=== PATIENT | female | born 1965 | race Caucasian/White ===

== ENCOUNTER 2017-11-14 17:24 | Inpatient (IN) | payer BC, OTHER ==
[2017-11-14] MEDS: ALPRAZOLAM 0.25 MG TAB PO (21:44)
[2017-11-14 22:14] LABS: ADD MAN DIFF? NO
[2017-11-14] MEDS: SOD CHLORIDE 0.9% 1,000 ML IV (22:16)
[2017-11-14] MEDS: CLINDAMYCIN 900 MG/D5W (PMX) 50 ML IVPB (22:16)
[2017-11-14 22:19] LABS: BASOPHILS % 0.3 % (0.0-2.0); EOSINOPHILS # 0.3 10^3/ul (0.0-0.5); HEMATOCRIT 39.2 % (37.0-47.0); HEMOGLOBIN 12.4 g/dl (12.0-16.0); IMMATURE GRANS #M 0.04 10^3/ul; IMMATURE GRANS % (M) 0.5 %; LYMPHOCYTES # 2.4 10^3/ul (0.8-2.9); LYMPHOCYTES % 27.5 % (15.0-51.0); MEAN CORPUSCULAR HEMOGLOBIN 27.1 pg (29.0-33.0); MEAN CORPUSCULAR HGB CONC 31.6 g/dl (32.0-37.0); MEAN CORPUSCULAR VOLUME 85.6 fl (82.0-101.0); MEAN PLATELET VOLUME 10.2 fl (7.4-10.4); MONOCYTE # 0.7 10^3/ul (0.3-0.9); MONOCYTES % 7.8 % (0.0-11.0); NEUTROPHIL # 5.4 10^3/ul (1.6-7.5); NEUTROPHILS % 60.9 % (39.0-77.0); PLATELET COUNT 293 10^3/UL (140-415); RED BLOOD COUNT 4.58 10^6/ul (4.20-5.40); RED CELL DISTRIBUTION WIDTH 13.9 % (11.5-14.5)
[2017-11-14 22:19] LABS: WHITE BLOOD COUNT 8.8 10^3/ul (4.8-10.8)
[2017-11-14 22:34] LABS: ANION GAP 15 (8-16); BLOOD UREA NITROGEN 19 mg/dl (7-20); CALCIUM 9.5 mg/dl (8.4-10.2); CARBON DIOXIDE 24 mmol/L (21-31); CHLORIDE 100 mmol/L (97-110); CREATININE 0.87 mg/dl (0.44-1.00); GLUCOSE 242 mg/dl (70-220); POTASSIUM 4.4 mmol/L (3.5-5.1); SODIUM 135 mmol/L (135-144)
[2017-11-15] MEDS ORDERED: ONDANSETRON 4 MG INJ IV ×2 (01:30→19:30)
[2017-11-15] MEDS ORDERED: GLUCOSE GEL 15 GRAM TUBE BUCCAL (02:00)
[2017-11-15] MEDS ORDERED: DEXTROSE 50% 50 ML SYRINGE IV ×2 (02:00)
[2017-11-15] MEDS ORDERED: GLUCAGON 1 MG INJ IM (02:00)
[2017-11-15] MEDS ORDERED: GLUCOSE GEL 15 GRAM TUBE PO ×2 (02:00)
[2017-11-15 07:55] LABS: ADD MAN DIFF? NO
[2017-11-15 08:00] LABS: WHITE BLOOD COUNT 7.1 10^3/ul (4.8-10.8)
[2017-11-15 08:00] LABS: BASOPHILS % 0.6 % (0.0-2.0); EOSINOPHILS # 0.3 10^3/ul (0.0-0.5); HEMATOCRIT 36.8 % (37.0-47.0); HEMOGLOBIN 11.5 g/dl (12.0-16.0); LYMPHOCYTES % 28.9 % (15.0-51.0); MEAN CORPUSCULAR HEMOGLOBIN 26.6 pg (29.0-33.0); MEAN CORPUSCULAR HGB CONC 31.3 g/dl (32.0-37.0); MEAN CORPUSCULAR VOLUME 85.2 fl (82.0-101.0); MEAN PLATELET VOLUME 10.7 fl (7.4-10.4); MONOCYTE # 0.5 10^3/ul (0.3-0.9); MONOCYTES % 6.9 % (0.0-11.0); NEUTROPHIL # 4.2 10^3/ul (1.6-7.5); NEUTROPHILS % 59.3 % (39.0-77.0); PLATELET COUNT 274 10^3/UL (140-415); RED BLOOD COUNT 4.32 10^6/ul (4.20-5.40); RED CELL DISTRIBUTION WIDTH 13.9 % (11.5-14.5)
[2017-11-15 08:16] LABS: HEMOGLOBIN A1C 9.5 % (0-5.9)
[2017-11-15 08:33] LABS: ANION GAP 16 (8-16); BLOOD UREA NITROGEN 19 mg/dl (7-20); CALCIUM 9.1 mg/dl (8.4-10.2); CARBON DIOXIDE 25 mmol/L (21-31); CHLORIDE 103 mmol/L (97-110); CREATININE 0.92 mg/dl (0.44-1.00); GLUCOSE 293 mg/dl (70-220); POTASSIUM 4.5 mmol/L (3.5-5.1); SODIUM 139 mmol/L (135-144)
[2017-11-15] MEDS: INSULIN ASPART [NOVOLOG] 3 ML PEN SC ×6 (08:47→22:07)
[2017-11-15] MEDS ORDERED: CEFTRIAXONE 1 GM/50 ML (PMX) 50 ML IVPB (11:00)
[2017-11-15] MEDS ORDERED: VANCOMYCIN IV PER PHARMACY XX (11:30)
[2017-11-15] MEDS: CEFEPIME 2GM/50 ML (PMX) 50 ML IVPB ×2 (13:26→23:37)
[2017-11-15] MEDS: VANCOMYCIN 2 GM in SOD CHLORIDE 0.9% 500 ML IVPB (14:12)
[2017-11-15] MEDS: hydrALAzine 20 MG INJ IV (18:03)
[2017-11-15] MEDS ORDERED: LABETALOL HCL 20MG INJ (19:08)
[2017-11-15] MEDS ORDERED: hydrALAzine 20 MG INJ IV (19:30)
[2017-11-15] MEDS ORDERED: DIPHENHYDRAMINE 50 MG INJ IV (19:30)
[2017-11-15] MEDS ORDERED: LABETALOL HCL 20MG INJ IV (19:30)
[2017-11-15] MEDS ORDERED: HYDROmorphONE 1 MG/5 ML IV SYRINGE IV ×3 (19:30)
[2017-11-15] MEDS ORDERED: FENTAnyl 50 MCG/ML VIAL (19:32)
[2017-11-15] MEDS ORDERED: MIDAZOLAM 1 MG/ML 2 ML INJ (19:32)
[2017-11-15] MEDS: VANCOMYCIN 1 GM INJ (19:52)
[2017-11-15] MEDS: BUPIVACAINE 0.5% (SDV) 30 ML INJ (19:52)
[2017-11-15] MEDS: ACETAMINOPHEN 325 MG TAB PO (21:15)
[2017-11-15] MEDS: INSULIN GLARGINE [LANTus] (100 UNITS/ML) SYG SC (22:08)
[2017-11-15] MEDS: SERTRALINE 50 MG TAB PO (23:36)
[2017-11-16] MEDS: ACCU-CHEK XX (02:00)
[2017-11-16] MEDS: VANCOMYCIN 1.25 GM in SOD CHLORIDE 0.9% 250 ML IVPB ×2 (02:14→14:19)
[2017-11-16 06:36] LABS: C-REACTIVE PROTEIN 3.6 mg/dl (0.0-0.9)
[2017-11-16 07:46] LABS: ERYTHROCYTE SEDIMENTATION RATE 49 mm/Hr (0-30)
[2017-11-16] MEDS: INSULIN ASPART [NOVOLOG] 3 ML PEN SC ×7 (08:16→20:57)
[2017-11-16] MEDS: hydrALAzine 20 MG INJ IV ×2 (08:45→15:09)
[2017-11-16] MEDS: SERTRALINE 50 MG TAB PO ×3 (08:45→20:58)
[2017-11-16 11:02] LABS: ADD MAN DIFF? NO
[2017-11-16 11:03] LABS: BASOPHILS % 0.4 % (0.0-2.0); EOSINOPHILS # 0.2 10^3/ul (0.0-0.5); EOSINOPHILS % 3.3 % (0.0-7.0); HEMATOCRIT 37.2 % (37.0-47.0); HEMOGLOBIN 11.9 g/dl (12.0-16.0); LYMPHOCYTES # 1.8 10^3/ul (0.8-2.9); LYMPHOCYTES % 24.6 % (15.0-51.0); MEAN CORPUSCULAR HEMOGLOBIN 27.4 pg (29.0-33.0); MEAN CORPUSCULAR VOLUME 85.5 fl (82.0-101.0); MEAN PLATELET VOLUME 10.8 fl (7.4-10.4); MONOCYTE # 0.6 10^3/ul (0.3-0.9); MONOCYTES % 8.3 % (0.0-11.0); NEUTROPHIL # 4.6 10^3/ul (1.6-7.5); NEUTROPHILS % 63.1 % (39.0-77.0); PLATELET COUNT 278 10^3/UL (140-415); RED BLOOD COUNT 4.35 10^6/ul (4.20-5.40); RED CELL DISTRIBUTION WIDTH 13.8 % (11.5-14.5)
[2017-11-16 11:03] LABS: WHITE BLOOD COUNT 7.3 10^3/ul (4.8-10.8)
[2017-11-16 11:09] LABS: ALANINE AMINOTRANSFERASE 17 IU/L (13-69); ALBUMIN 3.8 g/dl (3.3-4.9); ALBUMIN/GLOBULIN RATIO 1.18; ALKALINE PHOSPHATASE 71 IU/L (42-121); ANION GAP 16 (8-16); ASPARTATE AMINO TRANSFERASE 19 IU/L (15-46); BLOOD UREA NITROGEN 18 mg/dl (7-20); CALCIUM 9.3 mg/dl (8.4-10.2); CARBON DIOXIDE 25 mmol/L (21-31); CHLORIDE 104 mmol/L (97-110); CREATININE 0.91 mg/dl (0.44-1.00); GLUCOSE 285 mg/dl (70-220); POTASSIUM 4.6 mmol/L (3.5-5.1); SODIUM 140 mmol/L (135-144)
[2017-11-16] MEDS: PIPER-TAZO 3.375 GM IV (PMX) 100 ML IVPB ×2 (11:13→17:48)
[2017-11-16] MEDS: LISINOPRIL 10 MG TAB PO (11:13)
[2017-11-16] MEDS: AMLODIPINE 5 MG TAB PO (11:13)
[2017-11-16] MEDS: ACETAMINOPHEN 325 MG TAB PO ×2 (11:23→20:31)
[2017-11-16 13:49] LABS: VANCOMYCIN,TROUGH 13.2 ug/ml (10.0-20.0)
[2017-11-16] MEDS: metFORMIN 500 MG TAB PO (17:48)
[2017-11-16] MEDS: LINAGLIPTIN 5 MG TABLET PO (18:25)
[2017-11-16] MEDS: INSULIN GLARGINE [LANTus] (100 UNITS/ML) SYG SC (20:57)
[2017-11-17] MEDS: PIPER-TAZO 3.375 GM IV (PMX) 100 ML IVPB ×5 (00:12→23:53)
[2017-11-17] MEDS: ACCU-CHEK XX (02:00)
[2017-11-17] MEDS: VANCOMYCIN 1.25 GM in SOD CHLORIDE 0.9% 250 ML IVPB ×2 (02:24→13:31)
[2017-11-17 07:01] LABS: ANION GAP 14 (8-16); BLOOD UREA NITROGEN 21 mg/dl (7-20); CARBON DIOXIDE 24 mmol/L (21-31); CHLORIDE 103 mmol/L (97-110); CREATININE 0.87 mg/dl (0.44-1.00); GLUCOSE 289 mg/dl (70-220); POTASSIUM 4.7 mmol/L (3.5-5.1); SODIUM 136 mmol/L (135-144)
[2017-11-17] MEDS: SERTRALINE 50 MG TAB PO ×2 (08:42→20:36)
[2017-11-17] MEDS: LINAGLIPTIN 5 MG TABLET PO (08:42)
[2017-11-17] MEDS: AMLODIPINE 5 MG TAB PO ×2 (08:43→22:00)
[2017-11-17] MEDS: LISINOPRIL 10 MG TAB PO (08:43)
[2017-11-17] MEDS: INSULIN ASPART [NOVOLOG] 3 ML PEN SC ×6 (09:18→20:37)
[2017-11-17] MEDS ORDERED: metFORMIN 500 MG TAB PO (09:30)
[2017-11-17] MEDS: EMPAGLIFLOZIN 10 MG TABLET PO (10:23)
[2017-11-17] MEDS: metFORMIN 500 MG TAB PO ×2 (10:23→17:20)
[2017-11-17] MEDS: MUPIROCIN 2% 22 GM OINT TOP ×2 (10:24→21:58)
[2017-11-17] MEDS: hydrALAzine 20 MG INJ IV (17:35)
[2017-11-17] MEDS: INSULIN GLARGINE [LANTus] (100 UNITS/ML) SYG SC (20:40)
[2017-11-17] MEDS: ACETAMINOPHEN 325 MG TAB PO (22:05)
[2017-11-18] MEDS: ACCU-CHEK XX (01:59)
[2017-11-18] MEDS: VANCOMYCIN 1.25 GM in SOD CHLORIDE 0.9% 250 ML IVPB (02:05)
[2017-11-18] MEDS: PIPER-TAZO 3.375 GM IV (PMX) 100 ML IVPB (06:23)
[2017-11-18 07:05] LABS: ADD MAN DIFF? NO
[2017-11-18 07:11] LABS: WHITE BLOOD COUNT 7.2 10^3/ul (4.8-10.8)
[2017-11-18 07:11] LABS: BASOPHIL # 0.1 10^3/ul (0.0-0.1); BASOPHILS % 0.7 % (0.0-2.0); EOSINOPHILS # 0.3 10^3/ul (0.0-0.5); EOSINOPHILS % 3.6 % (0.0-7.0); HEMATOCRIT 38.7 % (37.0-47.0); LYMPHOCYTES # 1.8 10^3/ul (0.8-2.9); LYMPHOCYTES % 25.5 % (15.0-51.0); MEAN CORPUSCULAR HEMOGLOBIN 26.4 pg (29.0-33.0); MEAN CORPUSCULAR VOLUME 85.1 fl (82.0-101.0); MEAN PLATELET VOLUME 10.3 fl (7.4-10.4); MONOCYTE # 0.6 10^3/ul (0.3-0.9); MONOCYTES % 7.6 % (0.0-11.0); NEUTROPHIL # 4.5 10^3/ul (1.6-7.5); PLATELET COUNT 287 10^3/UL (140-415); RED BLOOD COUNT 4.55 10^6/ul (4.20-5.40); RED CELL DISTRIBUTION WIDTH 14.1 % (11.5-14.5)
[2017-11-18 07:35] LABS: CHOL/HDL RATIO 3.9 RATIO; HDL CHOLESTEROL 68 mg/dl (37-92); LDL CHOLESTEROL,CALCULATED 152 mg/dl; TRIGLYCERIDES 232 mg/dl (0-149)
[2017-11-18 07:35] LABS: CHOLESTEROL 266 mg/dl (100-200)
[2017-11-18 07:38] LABS: ANION GAP 16 (8-16); BLOOD UREA NITROGEN 26 mg/dl (7-20); CALCIUM 9.7 mg/dl (8.4-10.2); CARBON DIOXIDE 24 mmol/L (21-31); CHLORIDE 105 mmol/L (97-110); CREATININE 1.07 mg/dl (0.44-1.00); GLUCOSE 219 mg/dl (70-220); POTASSIUM 4.6 mmol/L (3.5-5.1); SODIUM 140 mmol/L (135-144)
[2017-11-18] MEDS: LISINOPRIL 20 MG TAB PO ×2 (08:41→20:26)
[2017-11-18] MEDS: AMLODIPINE 5 MG TAB PO (08:41)
[2017-11-18] MEDS: SERTRALINE 50 MG TAB PO ×2 (08:42→20:26)
[2017-11-18] MEDS: EMPAGLIFLOZIN 10 MG TABLET PO (08:42)
[2017-11-18] MEDS: metFORMIN 500 MG TAB PO ×2 (08:42→17:32)
[2017-11-18] MEDS: LINAGLIPTIN 5 MG TABLET PO (08:42)
[2017-11-18] MEDS: MUPIROCIN 2% 22 GM OINT TOP ×2 (08:42→20:27)
[2017-11-18] MEDS: INSULIN ASPART [NOVOLOG] 3 ML PEN SC ×7 (09:38→20:26)
[2017-11-18] MEDS: L ACIDOPHIL/B LACTIS/B LONGUM CAPSULE PO ×2 (10:02→20:25)
[2017-11-18] MEDS: CLINDAMYCIN 300 MG CAP PO ×2 (12:19→17:32)
[2017-11-18] MEDS: ATORVASTATIN 40 MG TAB PO (20:25)
[2017-11-18] MEDS: DOXYCYCLINE 100 MG TAB PO (20:26)
[2017-11-18] MEDS: INSULIN GLARGINE [LANTus] (100 UNITS/ML) SYG SC (20:37)
[2017-11-18] MEDS ORDERED: ATORVASTATIN 20 MG TAB PO (21:00)
[2017-11-19] MEDS: CLINDAMYCIN 300 MG CAP PO ×5 (00:05→23:42)
[2017-11-19] MEDS: ACCU-CHEK XX ×2 (02:00→23:45)
[2017-11-19 06:02] LABS: ADD MAN DIFF? NO
[2017-11-19 06:06] LABS: BASOPHILS % 0.5 % (0.0-2.0); EOSINOPHILS # 0.3 10^3/ul (0.0-0.5); EOSINOPHILS % 4.7 % (0.0-7.0); HEMATOCRIT 40.1 % (37.0-47.0); HEMOGLOBIN 12.4 g/dl (12.0-16.0); LYMPHOCYTES # 1.9 10^3/ul (0.8-2.9); LYMPHOCYTES % 26.1 % (15.0-51.0); MEAN CORPUSCULAR HEMOGLOBIN 26.8 pg (29.0-33.0); MEAN CORPUSCULAR HGB CONC 30.9 g/dl (32.0-37.0); MEAN CORPUSCULAR VOLUME 86.8 fl (82.0-101.0); MEAN PLATELET VOLUME 10.2 fl (7.4-10.4); MONOCYTE # 0.6 10^3/ul (0.3-0.9); MONOCYTES % 8.1 % (0.0-11.0); NEUTROPHIL # 4.4 10^3/ul (1.6-7.5); NEUTROPHILS % 60.2 % (39.0-77.0); PLATELET COUNT 302 10^3/UL (140-415); RED BLOOD COUNT 4.62 10^6/ul (4.20-5.40)
[2017-11-19 06:06] LABS: WHITE BLOOD COUNT 7.3 10^3/ul (4.8-10.8)
[2017-11-19 06:52] LABS: ANION GAP 15 (8-16); BLOOD UREA NITROGEN 32 mg/dl (7-20); CALCIUM 9.6 mg/dl (8.4-10.2); CARBON DIOXIDE 24 mmol/L (21-31); CHLORIDE 106 mmol/L (97-110); CREATININE 1.05 mg/dl (0.44-1.00); GLUCOSE 219 mg/dl (70-220); POTASSIUM 4.5 mmol/L (3.5-5.1); SODIUM 140 mmol/L (135-144)
[2017-11-19] MEDS: LISINOPRIL 20 MG TAB PO ×2 (08:36→21:00)
[2017-11-19] MEDS: DOXYCYCLINE 100 MG TAB PO ×2 (08:36→20:58)
[2017-11-19] MEDS: metFORMIN 500 MG TAB PO ×2 (08:36→17:18)
[2017-11-19] MEDS: SERTRALINE 50 MG TAB PO ×2 (08:37→20:59)
[2017-11-19] MEDS: EMPAGLIFLOZIN 10 MG TABLET PO (08:37)
[2017-11-19] MEDS: LINAGLIPTIN 5 MG TABLET PO (08:37)
[2017-11-19] MEDS: MUPIROCIN 2% 22 GM OINT TOP ×2 (08:37→21:22)
[2017-11-19] MEDS ORDERED: AMLODIPINE 5 MG TAB PO (09:00)
[2017-11-19] MEDS: INSULIN ASPART [NOVOLOG] 3 ML PEN SC ×7 (10:00→21:00)
[2017-11-19] MEDS: LACTATED RINGER'S 500 ML IV (10:30)
[2017-11-19] MEDS: L ACIDOPHIL/B LACTIS/B LONGUM CAPSULE PO ×2 (11:16→20:58)
[2017-11-19] MEDS: ATORVASTATIN 40 MG TAB PO (21:07)
[2017-11-19] MEDS: INSULIN GLARGINE [LANTus] (100 UNITS/ML) SYG SC (21:20)
[2017-11-20 06:36] LABS: ADD MAN DIFF? NO
[2017-11-20] MEDS: CLINDAMYCIN 300 MG CAP PO ×3 (06:37→18:15)
[2017-11-20 06:39] LABS: BASOPHIL # 0.1 10^3/ul (0.0-0.1); BASOPHILS % 0.8 % (0.0-2.0); EOSINOPHILS # 0.4 10^3/ul (0.0-0.5); EOSINOPHILS % 4.9 % (0.0-7.0); HEMOGLOBIN 12.4 g/dl (12.0-16.0); LYMPHOCYTES # 2.2 10^3/ul (0.8-2.9); LYMPHOCYTES % 27.4 % (15.0-51.0); MEAN CORPUSCULAR HEMOGLOBIN 26.8 pg (29.0-33.0); MEAN CORPUSCULAR VOLUME 86.6 fl (82.0-101.0); MEAN PLATELET VOLUME 10.6 fl (7.4-10.4); MONOCYTE # 0.5 10^3/ul (0.3-0.9); MONOCYTES % 6.8 % (0.0-11.0); NEUTROPHIL # 4.8 10^3/ul (1.6-7.5); NEUTROPHILS % 59.7 % (39.0-77.0); PLATELET COUNT 296 10^3/UL (140-415); RED BLOOD COUNT 4.62 10^6/ul (4.20-5.40)
[2017-11-20 07:15] LABS: ANION GAP 13 (8-16); BLOOD UREA NITROGEN 35 mg/dl (7-20); CALCIUM 9.4 mg/dl (8.4-10.2); CARBON DIOXIDE 24 mmol/L (21-31); CHLORIDE 108 mmol/L (97-110); CREATININE 1.04 mg/dl (0.44-1.00); GLUCOSE 179 mg/dl (70-220); POTASSIUM 4.4 mmol/L (3.5-5.1); SODIUM 141 mmol/L (135-144)
[2017-11-20] MEDS: metFORMIN 500 MG TAB PO ×2 (08:13→18:15)
[2017-11-20] MEDS: EMPAGLIFLOZIN 10 MG TABLET PO (08:13)
[2017-11-20] MEDS: INSULIN ASPART [NOVOLOG] 3 ML PEN SC ×7 (08:16→21:00)
[2017-11-20] MEDS: SERTRALINE 50 MG TAB PO ×2 (08:56→21:14)
[2017-11-20] MEDS: LINAGLIPTIN 5 MG TABLET PO (08:56)
[2017-11-20] MEDS: L ACIDOPHIL/B LACTIS/B LONGUM CAPSULE PO ×2 (08:56→21:13)
[2017-11-20] MEDS: AMLODIPINE 2.5 MG TAB PO (10:16)
[2017-11-20] MEDS: LISINOPRIL 20 MG TAB PO ×2 (10:16→21:00)
[2017-11-20] MEDS: DOXYCYCLINE 100 MG TAB PO ×2 (10:16→21:13)
[2017-11-20] MEDS: MUPIROCIN 2% 22 GM OINT TOP ×2 (10:17→21:14)
[2017-11-20] MEDS: ATORVASTATIN 40 MG TAB PO (21:13)
[2017-11-20] MEDS: INSULIN GLARGINE [LANTus] (100 UNITS/ML) SYG SC (21:19)
[2017-11-21] MEDS: CLINDAMYCIN 300 MG CAP PO ×4 (00:14→17:37)
[2017-11-21] MEDS: ACCU-CHEK XX (01:01)
[2017-11-21 07:13] LABS: ADD MAN DIFF? NO
[2017-11-21 07:15] LABS: WHITE BLOOD COUNT 7.9 10^3/ul (4.8-10.8)
[2017-11-21 07:15] LABS: BASOPHIL # 0.1 10^3/ul (0.0-0.1); BASOPHILS % 0.6 % (0.0-2.0); EOSINOPHILS # 0.4 10^3/ul (0.0-0.5); EOSINOPHILS % 4.8 % (0.0-7.0); HEMATOCRIT 40.3 % (37.0-47.0); HEMOGLOBIN 12.8 g/dl (12.0-16.0); LYMPHOCYTES # 2.1 10^3/ul (0.8-2.9); LYMPHOCYTES % 26.1 % (15.0-51.0); MEAN CORPUSCULAR HEMOGLOBIN 27.5 pg (29.0-33.0); MEAN CORPUSCULAR HGB CONC 31.8 g/dl (32.0-37.0); MEAN CORPUSCULAR VOLUME 86.7 fl (82.0-101.0); MEAN PLATELET VOLUME 10.5 fl (7.4-10.4); MONOCYTE # 0.7 10^3/ul (0.3-0.9); MONOCYTES % 8.3 % (0.0-11.0); NEUTROPHIL # 4.8 10^3/ul (1.6-7.5); NEUTROPHILS % 59.8 % (39.0-77.0); PLATELET COUNT 321 10^3/UL (140-415); RED BLOOD COUNT 4.65 10^6/ul (4.20-5.40); RED CELL DISTRIBUTION WIDTH 13.7 % (11.5-14.5)
[2017-11-21 07:47] LABS: ANION GAP 17 (8-16); BLOOD UREA NITROGEN 44 mg/dl (7-20); CALCIUM 9.7 mg/dl (8.4-10.2); CARBON DIOXIDE 22 mmol/L (21-31); CHLORIDE 107 mmol/L (97-110); CREATININE 1.03 mg/dl (0.44-1.00); GLUCOSE 184 mg/dl (70-220); POTASSIUM 4.7 mmol/L (3.5-5.1); SODIUM 141 mmol/L (135-144)
[2017-11-21 07:51] LABS: PHOSPHORUS 5.5 mg/dl (2.5-4.9)
[2017-11-21 07:51] LABS: MAGNESIUM 2.2 mg/dl (1.7-2.5)
[2017-11-21] MEDS: MUPIROCIN 2% 22 GM OINT TOP (08:24)
[2017-11-21] MEDS: INSULIN ASPART [NOVOLOG] 3 ML PEN SC ×6 (08:28→17:49)
[2017-11-21] MEDS: DOXYCYCLINE 100 MG TAB PO (09:41)
[2017-11-21] MEDS: SERTRALINE 50 MG TAB PO (09:41)
[2017-11-21] MEDS: LINAGLIPTIN 5 MG TABLET PO (09:41)
[2017-11-21] MEDS: L ACIDOPHIL/B LACTIS/B LONGUM CAPSULE PO (09:41)
[2017-11-21] MEDS: LISINOPRIL 20 MG TAB PO (09:42)
[2017-11-21] MEDS: EMPAGLIFLOZIN 10 MG TABLET PO (09:42)
[2017-11-21] MEDS: AMLODIPINE 2.5 MG TAB PO (09:42)
[2017-11-21] MEDS: metFORMIN 500 MG TAB PO ×2 (09:59→17:37)
== END 2017-11-21 17:45 | disposition home health service (06) | DRG 629 ==
LOC: 2NE 23:17 → E/R 17:24
PROC: 0QBN0ZZ Excision of Right Metatarsal, Open Approach (ICD-10-PCS; principal; 2017-11-15 17:30)
PROC: 0J9Q0ZZ Drainage of Right Foot Subcutaneous Tissue and Fascia, Open Approach (ICD-10-PCS; 2017-11-15 17:30)
DX: E11.621 Type 2 diabetes mellitus with foot ulcer (principal); L03.115 Cellulitis of right lower limb; I10 Essential (primary) hypertension; E66.9 Obesity, unspecified; Z68.34 Body mass index [BMI] 34.0-34.9, adult; Z98.84 Bariatric surgery status; Z86.73 Personal history of transient ischemic attack (TIA), and cerebral infarction without residual deficits; E78.5 Hyperlipidemia, unspecified; B95.62 Methicillin resistant Staphylococcus aureus infection as the cause of diseases classified elsewhere; I70.201 Unspecified atherosclerosis of native arteries of extremities, right leg
CPT/HCPCS: 73630; 80048; 80053; 80061; 80202; 82962; 83036; 83735; 84100; 85025; 85651; 86140; 87070; 87075; 87081; 87102; 87116; 93005; 93306; 93922; 96374; 97110; 97116; 97161; 97530; 99285-25